=== PATIENT | male | born 1970 | race Caucasian/White ===

== ENCOUNTER 2017-08-03 07:03 | Emergency (ER) | payer OTHER ==
[2017-08-03] MEDS ORDERED: Ketorolac 30 MG/ML SDV IVPUSH ONE (07:11)
[2017-08-03] MEDS ORDERED: Diphtheria,Pertussis(Acell),Tetanus Vaccine 0.5 ML Syringe IM ONE (07:11)
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
[2017-08-03] MEDS ORDERED: Promethazine 25 MG/ML SDV IM ONE (08:13)
[2017-08-03] MEDS ORDERED: Morphine 2 MG/ML Syringe IVPUSH ONE (08:30)
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
[2017-08-03 11:52] VITALS: BP 117/74
== END 2017-08-03 09:50 | disposition home or self-care (01) ==
LOC: MW.ED 07:03
DX: S40.022A Contusion of left upper arm, initial encounter (principal); S00.412A Abrasion of left ear, initial encounter; S40.212A Abrasion of left shoulder, initial encounter; S50.312A Abrasion of left elbow, initial encounter; S00.01XA Abrasion of scalp, initial encounter; V50.5XXA Driver of pick-up truck or van injured in collision with pedestrian or animal in traffic accident, initial encounter; Y92.410 Unspecified street and highway as the place of occurrence of the external cause; Z23 Encounter for immunization
CPT/HCPCS: 73030; 73060; 73552; 90471; 90715; 96372; 96374; 96375; 99285; A4566; J1885; J2270; J2550; 99284; G0390